=== PATIENT | male | born 1965 | race Caucasian/White ===

== ENCOUNTER 2020-05-10 10:46 | Inpatient (IN) | payer OTHER ==
--- NOTE | 2020-05-10 11:18 | EKG REPORT ---
SEVERITY:- BORDERLINE ECG - SINUS RHYTHM PROBABLE LEFT ATRIAL ABNORMALITY BORDERLINE PROLONGED QT INTERVAL : Confirmed by: Shawn Minor MD 10-May-2020 11:16:31
[2020-05-10] MEDS ORDERED: NORMAL SALINE 1000 ML 1,000 ML IV ONE (11:30)
[2020-05-10] MEDS ORDERED: DEXTROSE 5%-WATER 250 ML with NOREPINEPHRINE BITARTRATE 4 MG IV PRN ×4 (11:30→14:00)
--- NOTE | 2020-05-10 11:42 | ER Document Report ---
ED General - General Stated Complaint: UNRESPONSIVE Time Seen by Provider: 05/10/20 10:57 - HPI Notes: Patient is a 54-year-old male with a past medical history of rectal cancer with metastasis who presents via EMS for respiratory distress and unresponsiveness. EMS arrived at the house because they were called for nausea and vomiting. When they arrived, patient was doing well but then became short of breath. They attempted to CPAP him but he was not tolerating it. They did intubate him with RSI. They gave him ketamine for sedation and Levophed. He has an IO. From reports, the patient's stated that he is on hospice. They were unable to provide the DNR paperwork. Family is currently on the way. Patient is intubated. - Related Data Allergies/Adverse Reactions: No Known Allergies Allergy (Unverified 05/10/20 12:25) Past Medical History - General Information source: Emergency Med Personnel - Social History Smoking Status: Unknown if Ever Smoked Family History: Reviewed & Not Pertinent Malignancy Medical History: Reports Hx Colorectal Cancer Review of Systems - Review of Systems -: Yes ROS unobtainable due to patient's medical condition Physical Exam - Vital signs Vitals: Resp Pulse Ox 14 100 05/10/20 10:46 05/10/20 10:46 - General General appearance: Unresponsive Notes: VITAL SIGNS: Hypotensive GENERAL: Intubated. Jaundiced. HEAD: Normal with no signs of head trauma. EYES: Bilateral scleral icterus. NECK: No JVD. CHEST: Clear breath sounds bilaterally. CARDIAC: Regular rate and rhythm. VASCULAR: Mild peripheral edema. ABDOMEN: Mild distention. Colostomy present. MUSCULOSKELETAL: No obvious signs of trauma. NEUROLOGICAL: Unresponsive. Intubated. PSYCHIATRIC: Unable to assess. SKIN:Jaundice. Course - Re-evaluation Re-evalutation: 05/10/20 12:49 I talked on the phone with patient's , Melvi, who stated that patient has stage IV rectal cancer for the past 4 years. His chemotherapy was stopped and his oncologist put him in a clinical trial but he also had to stop this due to complications. They were transitioning him to hospice. The is the medical power of securities attorney. She states she does not have the DNR paperwork but does have the hospice paperwork. She does not want any life saving measures done or CPR. Patient was intubated by EMS and Levophed was running. This is continued in the ER through his port. Charge nurse called the hospice center who stated that patient is on hospice but does not have DNR paperwork filed. stated that they are here on vacation from [place]. He was doing well but has been going downhill this past week. I am currently awaiting her arrival. Patient has significant lab abnormalities that I am currently treating. I did consult with the ICU fish bin tender who agreed to accept the patient and agreed with the plan. Patient's arrived to the ER. She stated that she does want him to be on comfort care. She is the POA. She requested that we extubate him and withdraw all care. Shortly after withdrawing care, patient in the ED. Patient's time of was 7:35pm. 05/10/20 18:49 05/10/20 18:54 - Vital Signs Vital signs: Temp Pulse Resp BP Pulse Ox 98.7 F 0 L 50/28 L 82 L 05/10/20 16:26 05/10/20 16:26 05/10/20 16:26 05/10/20 16:25 - Laboratory Result Diagrams: 05/10/20 11:00 05/10/20 11:00 Laboratory results interpreted by me: 05/10/20 05/10/20 05/10/20 11:00 11:00 11:00 WBC 19.5 H RBC 2.62 L Hgb 8.2 L Hct 27.0 L MCV 103 H MCHC 30.5 L RDW 24.7 H Plt Count 122 L Band Neutrophils % 18 H Lymphocytes % (Manual) 6 L Monocytes % (Manual) 2 L Metamyelocytes % 3 H Myelocytes % 1 H Promyelocytes % 8 H Abs Neuts (Manual) 17.7 H PT 19.0 H VBG pH VBG HCO3 Sodium 135.4 L Potassium 6.1 H* Carbon Dioxide 10 L* Anion Gap 27 H BUN 107 H Creatinine 4.30 H Est GFR ( Amer) 17 L Est GFR (MDRD) Non-Af 14 L Lactic Acid Calcium 7.8 L Total Bilirubin 21.3 H Direct Bilirubin 19.8 H AST 383 H ALT 115 H Alkaline Phosphatase 1028 H Ammonia Total Protein 5.6 L Albumin 2.3 L Urine Protein Urine Bilirubin Urine Urobilinogen Ur Leukocyte Esterase Urine Ascorbic Acid 05/10/20 05/10/20 05/10/20 11:46 12:02 12:37 WBC RBC Hgb Hct MCV MCHC RDW Plt Count Band Neutrophils % Lymphocytes % (Manual) Monocytes % (Manual) Metamyelocytes % Myelocytes % Promyelocytes % Abs Neuts (Manual) PT VBG pH VBG HCO3 Sodium Potassium Carbon Dioxide Anion Gap BUN Creatinine Est GFR ( Amer) Est GFR (MDRD) Non-Af Lactic Acid 11.1 H Calcium Total Bilirubin Direct Bilirubin AST ALT Alkaline Phosphatase Ammonia 284.1 H Total Protein Albumin Urine Protein 30 H Urine Bilirubin MODERATE H Urine Urobilinogen 4.0 H Ur Leukocyte Esterase TRACE H Urine Ascorbic Acid 20 H 05/10/20 12:37 WBC RBC Hgb Hct MCV MCHC RDW Plt Count Band Neutrophils % Lymphocytes % (Manual) Monocytes % (Manual) Metamyelocytes % Myelocytes % Promyelocytes % Abs Neuts (Manual) PT VBG pH 7.04 L* VBG HCO3 10.7 L Sodium Potassium Carbon Dioxide Anion Gap BUN Creatinine Est GFR ( Amer) Est GFR (MDRD) Non-Af Lactic Acid Calcium Total Bilirubin Direct Bilirubin AST ALT Alkaline Phosphatase Ammonia Total Protein Albumin Urine Protein Urine Bilirubin Urine Urobilinogen Ur Leukocyte Esterase Urine Ascorbic Acid - Diagnostic Test Radiology reviewed: Image reviewed, Reports reviewed - EKG Interpretation by Me EKG shows normal: Sinus rhythm Rate: Normal Rhythm: NSR When compared to previous EKG there are: Previous EKG unavailable Additional EKG results interpreted by me: 05/10/20 12:07 Sinus rhythm at a rate of 95. QTc 493. No acute ST changes. No peaked T waves. Previous EKG not available. Critical Care Note - Critical Care Note Total time excluding time spent on procedures (mins): 60 Comments: Upon my evaluation, this patient had a high probability of imminent or life- threatening deterioration due to respiratory failure, which required my direct attention, intervention, and personal management. I have personally provided 60 minutes of critical care time exclusive of time spent on separately billable procedures. Time includes review of laboratory data, radiology cells, discussion with consultants, and monitoring for potential decompensation. Interventions were performed as above. Discharge - Discharge Clinical Impression: Hyperkalemia, Lactic acid acidosis, Hyperammonemia Acute respiratory failure Qualifiers: Respiratory failure complication: hypercapnia Qualified Code(s): J96.02 - Acute respiratory failure with hypercapnia Renal failure Qualifiers: Renal failure chronicity: unspecified chronicity Qualified Code(s): N19 - Unspecified kidney failure Hypotension Qualifiers: Hypotension type: unspecified hypotension type Qualified Code(s): I95.9 - Hypotension, unspecified Disposition:
[2020-05-10 11:44] LABS: HEMOGLOBIN 8.2 g/dL (13.5-17.0); MEAN CORPUSCULAR HEMOGLOBIN 31.5 pg (27.0-33.4); MEAN CORPUSCULAR HGB CONC 30.5 g/dL (32.0-36.0); MEAN CORPUSCULAR VOLUME 103 fl (80-97); PLATELET COUNT 122 10^3/uL (150-450); RED BLOOD COUNT 2.62 10^6/uL (4.35-5.55); RED CELL DISTRIBUTION WIDTH 24.7 % (11.5-14.0); WHITE BLOOD COUNT 19.5 10^3/uL (4.0-10.5)
[2020-05-10 11:47] LABS: INTERNATIONAL RATION (INR) 1.58
[2020-05-10 11:48] LABS: ALBUMIN 2.3 g/dL (3.5-5.0); ALKALINE PHOSPHATASE 1028 U/L (38-126); ASPARTATE AMINO TRANSFERASE 383 U/L (17-59); BILIRUBIN,DIRECT 19.8 mg/dL (0.0-0.4); BILIRUBIN,TOTAL 21.3 mg/dL (0.2-1.3); BLOOD UREA NITROGEN 107 mg/dL (7-20); CALCIUM 7.8 mg/dL (8.4-10.2); CREATINE KINASE 79 U/L (55-170); GLUCOSE 110 mg/dL (75-110); TOTAL PROTEIN 5.6 g/dL (6.3-8.2)
[2020-05-10 11:53] LABS: CHLORIDE 98 mmol/L (98-107)
--- NOTE | 2020-05-10 11:54 | RADIOLOGY REPORT (SQ) ---
EXAM DESCRIPTION: CHEST SINGLE VIEW IMAGES COMPLETED DATE/TIME: 05/10/2020 11:35 am REASON FOR STUDY: intubation, resp distress COMPARISON: None. EXAM PARAMETERS: NUMBER OF VIEWS: One view TECHNIQUE: Single frontal radiograph of the chest. RADIATION DOSE: N/A LIMITATIONS: None. FINDINGS: TEMPORARY SUPPORT DEVICES:ETT in expected location. NG tube courses below the hugo-diaphr agm in to the stomach. Central venous access catheter tip is in expected location. LUNGS AND PLEURA: Diffuse parenchymal opacities predominantly bibasilar. Possible right perihilar ma ss. MEDIASTINUM AND HILAR STRUCTURES: No masses. Contour normal. HEART AND VASCULAR STRUCTURES: Heart size normal. Normal vascularity. Aorta normal for age BONES: No acute findings. OTHER: No other significant finding. IMPRESSION: Diffuse parenchymal opacities predominantly basilar. Consistent with covid 19. Possible right perihilar mass. SUPPORT DEVICE(S) IN EXPECTED LOCATIONS. TECHNICAL DOCUMENTATION: JOB ID: [id number] [employer]- All Rights Reserved Reading location - IP/workstation name: [email or web address]
[2020-05-10 11:57] LABS: ANION GAP 27 (5-19)
[2020-05-10 12:00] LABS: POTASSIUM 6.1 mmol/L (3.6-5.0)
[2020-05-10 12:01] LABS: CARBON DIOXIDE 10 mmol/L (22-30)
[2020-05-10] MEDS ORDERED: CALCIUM GLUCONATE 1000 MG/10 ML INJ IV ONE (12:03)
[2020-05-10] MEDS ORDERED: DEXTROSE 50%-WATER 25 GM/50 ML DISP.SYRIN IV ONE (12:03)
[2020-05-10] MEDS ORDERED: INSULIN REG, HUMAN 100 UNIT/ML 3 ML VIAL (PYX) IV ONE (12:03)
[2020-05-10] MEDS ORDERED: ALBUTEROL SULFATE 0.083% NEB 2.5 MG/3 ML AMPUL NEB ONE (12:05)
[2020-05-10 12:11] LABS: ABSOLUTE LYMPHOCYTES# (MANUAL) 1.4 10^3/uL (0.5-4.7); ABSOLUTE MONOCYTES # (MANUAL) 0.4 10^3/uL (0.1-1.4); BASOPHILS % (MANUAL) 0 % (0-2); LYMPHOCYTES % (MANUAL) 6 % (13-45); MONOCYTES % (MANUAL) 2 % (3-13); MYELOCYTES % (MANUAL) 1 % (0); SEGMENTED NEUTROPHILS % (MAN) 61 % (42-78); TOTAL CELLS COUNTED 100
[2020-05-10 12:13] LABS: ANISOCYTOSIS 4+; PLATELET COMMENT ADEQUATE; SPHEROCYTES 1+
[2020-05-10 12:14] LABS: PLATELET GIANT PRESENT
[2020-05-10 12:17] LABS: APPEARANCE,URINE CLOUDY; BILIRUBIN,URINE MODERATE (NEGATIVE); COLOR,URINE AMBER; GLUCOSE, URINE NEGATIVE (NEGATIVE); KETONES,URINE NEGATIVE (NEGATIVE); LEUKOCYTE ESTERASE,URINE TRACE (NEGATIVE); NITRITE,URINE NEGATIVE (NEGATIVE); PROTEIN,URINE 30 mg/dL (NEGATIVE); URINE SPECIFIC GRAVITY 1.015
[2020-05-10 12:17] LABS: BAND NEUTROPHILS % (MANUAL) 18 % (3-5); METAMYELOCYTES % (MANUAL) 3 % (0-1); PROMYELOCYTES % (MANUAL) 8 % (0)
[2020-05-10] MEDS ORDERED: CEFTRIAXONE 1 GM/D5W RTU 1 GM/50 ML RTUPB IV ONE (12:24)
[2020-05-10] MEDS ORDERED: DEXAMETHASONE SOD PHOS INJ 10 MG/1 ML VIAL IV ONE (12:25)
[2020-05-10 12:28] LABS: EOSINOPHILS % (MANUAL) 0 % (0-6)
[2020-05-10 12:52] LABS: VENOUS BLOOD BASE EXCESS -18.4 mmol/L; VENOUS BLOOD HCO3 10.7 mmol/L (20-32)
[2020-05-10 12:57] LABS: VENOUS BLOOD PH 7.04 (7.30-7.42)
[2020-05-10] MEDS ORDERED: RINGERS SOLUTION,LACTATED 1,000 ML IV PRN (14:00)
[2020-05-10] MEDS ORDERED: ACETAMINOPHEN 650 MG SUPP.RECT PR PRN (14:00)
[2020-05-10] MEDS ORDERED: ONDANSETRON HCL INJ/PF 4 MG/2 ML SDV IV PRN (14:00)
--- NOTE | 2020-05-10 14:19 | CRITICAL CARE ADMISSION REPORT ---
HPI Date:: 05/10/20 Time:: 13:30 Reason for ICU Reason:: Intubated in septic shock Admission Date/Time & PCP: Admission Date/Time: Primary Care Provider: HPI: This patient is a 54 yo man who has rectal cancer with metastases to the lungs and liver [place]. He had been getting sick for about a week and suddenly became minimally responsive today. He very possibly aspirated. He presents with high lactic acidosis, ammonia 284, liver failure, renal failure. His is on her way in. She requests no CPR and when she gets here we will likely withdraw care. History obtained from:: Dr. Lanier - Diagnosis/Plan (1) Rectal cancer metastasized to liver Is this a current diagnosis for this admission?: Yes Plan: He has been battling this for 4 years. No CTX. Transitioning to hospice (2) Rectal cancer metastasized to lung Is this a current diagnosis for this admission?: Yes Plan: Lesions seen on CXR (3) Lactic acid acidosis Is this a current diagnosis for this admission?: Yes Plan: Level is 11.1 (4) Renal failure Is this a current diagnosis for this admission?: Yes Plan: Cr 4.3 GFR 17. (5) Hyperkalemia Is this a current diagnosis for this admission?: Yes Plan: Level 6.1. Plan Summary: Plan to maintain care as is. Hope to withdraw when is here. Past Medical History Malignancy History Note: Rectal cancer with metastises Past Surgical History Past Surgical History: Reports: Other - Not known Social/Family History - Social History Lives with: Family, Spouse/Significant other Smoking Status: Unknown if Ever Smoked - Medication/Allergies Allergies/Adverse Reactions: No Known Allergies Allergy (Unverified 05/10/20 12:25) Review of Systems ROS unobtainable: Due to endotracheal tube, Due to mental status Physical Exam Vital Signs: Temp Pulse Resp BP Pulse Ox 95.1 F L 25 H 80/42 L 100 05/10/20 13:46 05/10/20 13:46 05/10/20 13:46 05/10/20 13:46 Intake & Output 05/09/20 05/10/20 05/11/20 06:59 06:59 06:59 Intake Total 1186 Balance 1186 Weight 82.1 kg Weight/Height Weight 82.1 kg General appearance: PRESENT: no acute distress, thin, other - Emaciated Head exam: PRESENT: atraumatic, normocephalic Eye exam: PRESENT: conjunctiva pink, EOMI, PERRLA. ABSENT: scleral icterus Ear exam: PRESENT: normal external ear exam Mouth exam: PRESENT: moist, tongue midline Neck exam: ABSENT: carotid bruit, JVD, lymphadenopathy, thyromegaly Respiratory exam: PRESENT: clear to auscultation nidia, other - R subclavian chemoport.. ABSENT: rales, rhonchi, wheezes Cardiovascular exam: PRESENT: RRR. ABSENT: diastolic murmur, rubs, systolic murmur GI/Abdominal exam: PRESENT: normal bowel sounds, soft. ABSENT: distended, guarding, mass, organolmegaly, rebound, tenderness Rectal exam: PRESENT: deferred Gentrourinary exam: PRESENT: indwelling catheter Extremities exam: PRESENT: full ROM. ABSENT: calf tenderness, clubbing, pedal edema Musculoskeletal exam: PRESENT: normal inspection Neurological exam: PRESENT: other - He is unresponsive. Skin exam: PRESENT: jaundice Tubes/Lines: PRESENT: Endotracheal Tube, Nasogastic Tube Laboratory/Radiographs Laboratory Results: 05/10/20 11:00 05/10/20 11:00 05/10/20 05/10/20 05/10/20 11:00 11:00 11:46 WBC 19.5 H RBC 2.62 L Hgb 8.2 L Hct 27.0 L MCV 103 H MCH 31.5 MCHC 30.5 L RDW 24.7 H Plt Count 122 L Seg Neutrophils % Not Reportable VBG pH VBG pCO2 VBG HCO3 VBG Base Excess Sodium 135.4 L Potassium 6.1 H* Chloride 98 Carbon Dioxide 10 L* Anion Gap 27 H BUN 107 H Creatinine 4.30 H Est GFR ( Amer) 17 L Glucose 110 Lactic Acid 11.1 H Calcium 7.8 L Total Bilirubin 21.3 H AST 383 H Alkaline Phosphatase 1028 H Ammonia Total Protein 5.6 L Albumin 2.3 L Lipase 107.0 Urine Color Urine Appearance Urine pH Ur Specific [place] Urine Protein Urine Glucose (UA) Urine Ketones Urine Blood Urine Nitrite Ur Leukocyte Esterase Urine WBC (Auto) Urine RBC (Auto) Blood Type Antibody Screen 05/10/20 05/10/20 05/10/20 11:46 12:02 12:37 WBC RBC Hgb Hct MCV MCH MCHC RDW Plt Count Seg Neutrophils % VBG pH VBG pCO2 VBG HCO3 VBG Base Excess Sodium Potassium Chloride Carbon Dioxide Anion Gap BUN Creatinine Est GFR ( Amer) Glucose Lactic Acid Calcium Total Bilirubin AST Alkaline Phosphatase Ammonia 284.1 H Total Protein Albumin Lipase Urine Color EFREN Urine Appearance CLOUDY Urine pH 5.0 Ur Specific [place] 1.015 Urine Protein 30 H Urine Glucose (UA) NEGATIVE Urine Ketones NEGATIVE Urine Blood NEGATIVE Urine Nitrite NEGATIVE Ur Leukocyte Esterase TRACE H Urine WBC (Auto) 5 Urine RBC (Auto) 1 Blood Type O POSITIVE Antibody Screen NEGATIVE 05/10/20 12:37 WBC RBC Hgb Hct MCV MCH MCHC RDW Plt Count Seg Neutrophils % VBG pH 7.04 L* VBG pCO2 40.0 VBG HCO3 10.7 L VBG Base Excess -18.4 Sodium Potassium Chloride Carbon Dioxide Anion Gap BUN Creatinine Est GFR ( Amer) Glucose Lactic Acid Calcium Total Bilirubin AST Alkaline Phosphatase Ammonia Total Protein Albumin Lipase Urine Color Urine Appearance Urine pH Ur Specific [place] Urine Protein Urine Glucose (UA) Urine Ketones Urine Blood Urine Nitrite Ur Leukocyte Esterase Urine WBC (Auto) Urine RBC (Auto) Blood Type Antibody Screen 05/10/20 05/10/20 11:00 11:00 Creatine Kinase 79 Troponin I < 0.012 Impressions: Chest X-Ray 05/10/20 11:12 IMPRESSION: Diffuse parenchymal opacities predominantly basilar. Consistent with covid 19. Possible right perihilar mass. SUPPORT DEVICE(S) IN EXPECTED LOCATIONS. All labs, radiographs, diagnostic studies and EKGs were personally reviewed: Yes In addition, reports of radiographic and diagnostic studies were read: Yes Critical Time Critical Time (minutes): 40 -: The care of a critically ill patient is dynamic. This note represents a static moment in the admission process. Orders and treatments may be given simultaneously and urgently, and time is not wine sales representative of the treatment process. This patient requires Critical Care secondary to life threatening organ or limb dysfunction. Without Critical Care services, the patient is at risk for increased mortality and morbidity.
[2020-05-10] MEDS ORDERED: NOREPINEPHRINE BITARTRATE INJ/PF 4 MG/4 ML SDV IV ONE (14:28)
[2020-05-10 16:31] VITALS: BP 50/28
[2020-05-13 11:58] LABS: PATH REVIEW PATHOLOGIST REVIEWED
== END 2020-05-10 18:00 | disposition left against medical advice (07) | DRG 208 ==
LOC: ER 10:46 → EH 14:36
PROVIDERS: ADMIT Anesthesiology; ATTEND Anesthesiology
PROC: 5A1935Z Respiratory Ventilation, Less than 24 Consecutive Hours (ICD-10-PCS; principal; 2020-05-10)
DX: J96.02 Acute respiratory failure with hypercapnia (principal); C20 Malignant neoplasm of rectum; C78.7 Secondary malignant neoplasm of liver and intrahepatic bile duct; C78.00 Secondary malignant neoplasm of unspecified lung; N18.4 Chronic kidney disease, stage 4 (severe); E87.2 Acidosis; E87.5 Hyperkalemia; I95.9 Hypotension, unspecified; Z93.3 Colostomy status; Z92.21 Personal history of antineoplastic chemotherapy; Z20.828 Contact with and (suspected) exposure to other viral communicable diseases
CPT/HCPCS: 36415; 36591; 71045; 80053; 81001; 82140; 82550; 82803; 83605; 83690; 84484; 85025; 85610; 86850; 86900; 86901; 87040; 87086; 87635; 93005; 93010; 94002; 94660; 96365; 96366; 96368; 96375; 99291; C9803; J0610; J0696; J1100; J1815; J3490; J7030; J7060; J7120